=== PATIENT | female | born 1975 | race Caucasian/White ===

== ENCOUNTER 2018-01-13 01:10 | Emergency (ER) | payer OTHER ==
[2018-01-13] MEDS ORDERED: 0.9 % SODIUM CHLORIDE 500 ML IV ONE ×2 (01:20→01:58)
[2018-01-13] MEDS ORDERED: ONDANSETRON HCL/PF 4 MG/ 2ML VIAL IVP ONE (01:20)
--- NOTE | 2018-01-13 01:51 | ED Physician Documentation ---
General Adult - HISTORIAN Historian: patient - HPI Stated Complaint: heavy period, cramping Chief Complaint: General Adult Onset: hours Timing: still present Severity: moderate Further Comments: yes (Pt is a 42 yo female with c/o heavy menses and abd pain/ cramping this evening. Pt says that she was at work and filled 2 tampons in the space of 20 minutes and saw several clots.) - ROS CONST: other (malaise) EYES/ENT: none CVS/RESP: none GI/: other (heavy menses) MS/SKIN/LYMPH: none - PAST HX Past History: other (MS, Fibromyalgia, RA, OA, PTSD, ADHD, Endometriosis, Falopian Tube adhesions, Uterine infection, Costochondritis, Miscarriage x 5, Live births x 5.) Allergies/Adverse Reactions: Allergies Allergy/AdvReac Type Severity Reaction Status Date / Time cephalexin monohydrate Allergy Verified 01/13/18 01:16 [From Keflex] ciprofloxacin [From Cipro] Allergy Verified 01/13/18 01:16 ciprofloxacin HCl Allergy Verified 01/13/18 01:16 [From Cipro] levofloxacin Allergy Verified 01/13/18 01:16 sulfamethoxazole Allergy Verified 01/13/18 01:16 [From Bactrim] trimethoprim [From Bactrim] Allergy Verified 01/13/18 01:16 Home Medications: Ambulatory Orders Medication Instructions Recorded Dextroamphetamine/Amphetamine 15 mg PO DAILY 10/18/15 [Adderall 15 mg Tablet] - SOCIAL HX Smoking History: non-smoker - FAMILY HX Family History: No - VITAL SIGNS Vital Signs: Vital Signs Temp Pulse Resp BP Pulse Ox 98.2 F 96 H 16 113/71 99 01/13/18 01:12 01/13/18 01:12 01/13/18 01:12 01/13/18 01:12 01/13/18 01:12 - REVIEWED ASSESSMENTS Nursing Assessment Reviewed: Yes Vitals Reviewed: Yes Progress - Progress Progress: NS 1 L IVF Zofran 4 mg IV Toradol 30 mg IV improved ED Results Lab/Radiology - Orders Orders: ED Orders Category Date Time Status Place IV Lock 1T Care 01/13/18 01:20 Active CBC/PLATELET/DIFF Routine Lab 01/13/18 Ordered CMP Routine Lab 01/13/18 Ordered PT-INR Routine Lab 01/13/18 Ordered SERUM HCG Stat Lab 01/13/18 Ordered 0.9 % Sodium Chloride [Normal Saline] 500 ml Med 01/13/18 01:20 Active IV NOW Ondansetron HCl/Pf [Zofran 4 mg/2 ml] Med 01/13/18 01:20 Discontinued 4 mg IVP NOW ONE General Adult Physical Exam - PHYSICAL EXAM GENERAL APPEARANCE: moderate distress EENT: pharynx normal, other (poor dentition) NECK: normal inspection, supple RESPIRATORY: no resp distress, chest non-tender, breath sounds normal CVS: reg rate & rhythm, heart sounds normal ABDOMEN: soft, normal bowel sounds, tenderness (moderate diffuse tenderness), other (vag exam: small amount of blood, small clot seen; no unusual bleeding seen) BACK: normal inspection, no CVA tenderness SKIN: warm/dry, normal color EXTREMITIES: non-tender, normal range of motion, no evidence of injury, no edema NEURO: oriented X3, motor nml, sensation nml Discharge Clincal Impression: Menses painful Referrals: Primary Doctor,No [Primary Care Provider] - Condition: Good Disposition: 01 HOME, SELF-CARE Decision to Admit: NO Decision Time: 03:01
[2018-01-13 02:07] LABS: BASOPHILS % 0.9 (0.0-1.5); EOSINOPHILS % 2.8 % (0.0-6.8); MEAN CORPUSCULAR HEMOGLOBIN 28.8 pg (28.0-34.0); MEAN CORPUSCULAR VOLUME 91.1 fl (80.0-100.0); MONOCYTES % 4.4 % (0.0-11.0); NEUTROPHILS # 4.8 # k/uL (1.4-7.7)
[2018-01-13 02:18] LABS: eGFR (African) > 60; eGFR (Non-African) > 60
[2018-01-13] MEDS ORDERED: KETOROLAC TROMETHAMINE 30 MG/1ML VIAL IVP ONE (02:20)
[2018-01-13 03:09] LABS: APPEARANCE,URINE CLEAR (CLEAR); COLOR,URINE YELLOW (YELLOW); OCCULT BLOOD,URINE 2+ (NEGATIVE); PH URINE 5.5 (5.0 - 8.0); UROBILINOGEN URINE 0.2 Eu (0.2-1.0)
[2018-01-13 03:17] VITALS: BP 102/59
== END 2018-01-13 03:10 | disposition home or self-care (01) ==
LOC: ED 01:10
DX: N94.6 Dysmenorrhea, unspecified (principal)
CPT/HCPCS: 80053; 81002; 84703; 85025; 85610; J1885; J2405; J7060; 96365; 96366; 96375; 99283; S1016

== ENCOUNTER 2018-04-01 00:25 | Emergency (ER) | payer OTHER ==
--- NOTE | 2018-04-01 00:30 | ED Physician Documentation ---
General Adult - HISTORIAN Historian: patient - HPI Stated Complaint: lower abdominal pain Chief Complaint: Abdominal Pain Onset: hours (1) Timing: still present Severity: moderate Further Comments: yes (She states two weeks ago she was in the ER for "low iron and a ruptured ovarian cyst" they wanted to admit her for the iron issue per her report but she did not feel she needed to be admitted. She states she has endometrosis. 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 She states that she then after work tonight went to use the restroom and she had severe pain on right lower abdomen. She states this almost made her "pass out" and she had "terrible pain with urination" . She denies a fever. She states that at this time she did have blood in her urine. She is not sexually active. No low back pain She did not take any meds for the pain) Last known Well Code/Unknown Code: Unknown - ROS CONST: denies: fever, recent illness EYES/ENT: denies: sore throat CVS/RESP: denies: shortness of breath GI/: abdominal pain, problems urinating. denies: vomiting, nausea, diarrhea MS/SKIN/LYMPH: denies: rash NEURO/PSYCH: denies: headache - PAST HX Past History: other (endometrosis, ovarian cyst, low iron ) Surgeries/Procedures: other (T&A ) Immunizations: UTD Allergies/Adverse Reactions: Allergies Allergy/AdvReac Type Severity Reaction Status Date / Time cephalexin monohydrate Allergy Verified 04/01/18 01:03 [From Keflex] ciprofloxacin [From Cipro] Allergy Verified 04/01/18 01:03 ciprofloxacin HCl Allergy Verified 04/01/18 01:03 [From Cipro] levofloxacin Allergy Verified 04/01/18 01:03 sulfamethoxazole Allergy Verified 04/01/18 01:03 [From Bactrim] trimethoprim [From Bactrim] Allergy Verified 04/01/18 01:03 Home Medications: Ambulatory Orders Medication Instructions Recorded Dexmethylphenidate HCl 20 mg PO DAILY 04/01/18 [Dexmethylphenidate HCl ER] - SOCIAL HX Smoking History: cigarettes Alcohol Use: none Drug Use: none - FAMILY HX Family History: No - VITAL SIGNS Vital Signs: Vital Signs Temp Pulse Resp BP Pulse Ox 102/59 01/13/18 03:10 - REVIEWED ASSESSMENTS Nursing Assessment Reviewed: Yes Vitals Reviewed: Yes Progress - Progress Progress: 0141: results discussed. She is agreeable to following up with her dr mid to end of the week for follow up UA and labs DG General Adult Physical Exam - PHYSICAL EXAM GENERAL APPEARANCE: no distress EENT: eye inspection normal NECK: normal inspection RESPIRATORY: no resp distress, chest non-tender, breath sounds normal CVS: reg rate & rhythm, heart sounds normal, equal pulses, no murmur ABDOMEN: soft, normal bowel sounds, no distension, tenderness. No: McBurney's point tenderne, rebound, guarding BACK: normal inspection SKIN: warm/dry, normal color EXTREMITIES: non-tender, normal range of motion, no evidence of injury, no edema NEURO: oriented X3, CN's nml as tested, motor nml, sensation nml, mood/affect nml Discharge Clincal Impression: Urinary tract infection Qualifiers: Urinary tract infection type: site unspecified Hematuria presence: with hematuria Qualified Code(s): N39.0 - Urinary tract infection, site not specified Referrals: Primary Doctor,No [Primary Care Provider] - 2 Days Additional Instructions: 1. Macrobid 100 mg take 1 by mouth BID x 10 days 2. Pyridum 100 mg TID x 3 days 3. Increase fluids 4. Tylenol or ibuprofen as needed for pain 5. Follow up with PCP in 2-4 days 6. Return to ER for increased symptoms Condition: Stable Disposition: 01 HOME, SELF-CARE Decision to Admit: NO Date of Decison to Admit: 04/01/18 Decision Time: 01:41
[2018-04-01] MEDS: 0.9 % SODIUM CHLORIDE 1,000 ML IV ONE (01:15)
[2018-04-01] MEDS: KETOROLAC TROMETHAMINE 30 MG/1ML VIAL IVP ONE (01:15)
[2018-04-01 01:21] LABS: BASOPHILS % 0.3 (0.0-1.5); EOSINOPHILS % 0.7 % (0.0-6.8); MEAN CORPUSCULAR HEMOGLOBIN 27.8 pg (28.0-34.0); MEAN CORPUSCULAR VOLUME 89.8 fl (80.0-100.0); MONOCYTES % 3.4 % (0.0-11.0); NEUTROPHILS # 11.6 # k/uL (1.4-7.7)
[2018-04-01] MEDS: NITROFURANTOIN 100 MG CAPSULE PO ONE (01:21)
[2018-04-01] MEDS: PHENAZOPYRIDINE HCL 200 MG TABLET PO ONE (01:22)
[2018-04-01 01:36] LABS: eGFR (African) > 60; eGFR (Non-African) > 60
[2018-04-01 02:41] VITALS: BP 97/70
== END 2018-04-01 02:23 | disposition home or self-care (01) ==
LOC: ED 00:25
DX: N39.0 Urinary tract infection, site not specified (principal)
CPT/HCPCS: 80053; 85025; 87086; 87186; J1885; J7030; 96365; 96375; 99283; S1016

== ENCOUNTER 2018-04-29 19:51 | Emergency (ER) | payer SELFPAY ==
--- NOTE | 2018-04-29 20:24 | ED Physician Documentation ---
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 Has pain left glut and tailbone. Walked into ER. No treatment attempted. No other associated signs. Occurred about 174. Where: work - ROS CONST: no problems - PAST HX Past History: other (MS, fibromyalgia) Allergies/Adverse Reactions: Allergies Allergy/AdvReac Type Severity Reaction Status Date / Time cephalexin monohydrate Allergy Verified 04/29/18 21:10 [From Keflex] ciprofloxacin [From Cipro] Allergy Verified 04/29/18 21:10 ciprofloxacin HCl Allergy Verified 04/29/18 21:10 [From Cipro] levofloxacin Allergy Verified 04/29/18 21:10 sulfamethoxazole Allergy Verified 04/29/18 21:10 [From Bactrim] trimethoprim [From Bactrim] Allergy Verified 04/29/18 21:10 Home Medications: Ambulatory Orders Medication Instructions Recorded Dexmethylphenidate HCl 20 mg PO DAILY 04/01/18 [Dexmethylphenidate HCl ER] - SOCIAL HX Smoking History: non-smoker - FAMILY HX Family History: no significant history - VITAL SIGNS Vital Signs: Vital Signs Temp Pulse Resp BP Pulse Ox 97/70 04/01/18 02:39 - REVIEWED ASSESSMENTS Nursing Assessment Reviewed: Yes Vitals Reviewed: Yes Progress - Progress Progress: Patient Study Name: ANIVAL MYERS Date: Apr 29, 2018 8:51:30 PM CDT Modality Type: DX Gender: F Description: SPINE : 75 Institution: [facility] Physician: HUMBERTO GREENE - ER 3 views of the lumbar spine Clinical history: FALL, LOWER BACK PAIN Findings: Examination lumbar spine AP, lateral and lateral coned down views demonstrates the vertebrae to be anatomically aligned. Pedicles are intact and the paravertebral soft tissues are within normal limits. No evident fracture. Impression: 1. Negative study. Electronically signed on Apr 29, 2018 9:18:24 PM CDT by: José Sim Patient Study Name: ANIVAL MYERS Date: Apr 29, 2018 8:45:55 PM CDT Modality Type: DX Gender: F Description: SPINE : 75 Institution: [facility] Physician: HUMBERTO GREENE - 3 views of the sacrum and coccyx Clinical history: FALL, LOWER BACK PAIN Findings: Examination sacrum and coccyx in AP, angled and lateral views fails to demonstrate evidence of fracture. Sacroiliac joints are symmetric. Sacral foramina are preserved. Impression: 1. Negative study. Electronically signed on Apr 29, 2018 9:17:29 PM CDT by: José Sim Patient Study Name: ANIVAL MYERS Date: Apr 29, 2018 8:36:34 PM CDT Modality Type: DX Gender: F Description: PELVIS : 75 Institution: [facility] Physician: HUMBERTO GREENE [facility] Pelvis and bilateral hips Clinical history: BILAT HIP/W PELVIS, BILAT HIP PAIN, MORE PAIN IN LEFT HIP Findings: Examination of the pelvis in AP and both hips in AP and frog leg lateral views fails to demonstrate evidence of fracture. Sacroiliac joints are symmetric. Femoral heads are normally seated in the acetabula. There is no evident fracture and no lytic or blastic lesion. Impression: 1. No fracture. Electronically signed on Apr 29, 2018 9:16:34 PM CDT by: José Sim ED Results Lab/Radiology - Orders Orders: ED Orders Category Date Time Status BILAT HIPS 2V (W/PEL IF DONE) [RAD] Stat Exams 04/29/18 Ordered L SPINE 2 OR 3 VIEWS [RAD] Stat Exams 04/29/18 Ordered SACRUM & COCCYX 2 VIEW+ [RAD] Stat Exams 04/29/18 Ordered URINE HCG [URINE HCG] Stat Lab 04/29/18 Uncollected Fall Physical Exam - Physical Exam General Appearance: alert, mild distress Head: no obvious injury Neck: painless ROM Eye: lids & conjunct. nml ENT: nml external inspection Resp/CVS: chest non-tender, breath sounds nml, heart sounds nml Abdomen: soft, normal bowel sounds Neuro: CN's nml as tested, sensation nml, motor nml Skin: color nml, warm Back: normal inspection, no CVA tenderness, no vertebral tenderness Extremities: atraumatic, pelvis stable (tender to palpation left iliac crest area), no pedal edema, other (gait is antalgic) Joint: joints nml, nml ROM Discharge Clincal Impression: Fall Qualifiers: Encounter type: initial encounter Qualified Code(s): W19.XXXA - Unspecified fall, initial encounter Contusion Qualifiers: Encounter type: initial encounter Contusion area: lower back Qualified Code(s) : S30.0XXA - Contusion of lower back and pelvis, initial encounter Referrals: Bethel Kasper [Primary Care Provider] - 2 Days Condition: Good Disposition: 01 HOME, SELF-CARE Decision to Admit: NO Decision Time: 21:23
[2018-04-29] MEDS ORDERED: KETOROLAC TROMETHAMINE 60 MG/2 ML VIAL IM ONE (21:12)
[2018-04-29] MEDS ORDERED: ORPHENADRINE CITRATE 60 MG/2ML IM ONE (21:12)
[2018-04-29] MEDS ORDERED: CYCLOBENZAPRINE HCL 5 MG TABLET PO ONE (21:31)
[2018-04-29] MEDS ORDERED: ACETAMINOPHEN WITH CODEINE 300MG/30MG TABLET PO ONE (21:31)
[2018-04-29 21:51] VITALS: BP 109/45
--- NOTE | 2018-04-30 06:25 | Diagnostic Imaging Report ---
HUMBERTO GREENE [facility] [address] [facility] [address] [address] Report Submission Date: Apr 29, 2018 9:17:29 PM CDT Patient Study Name: ANIVAL MYERS Date: Apr 29, 2018 8:45:55 PM CDT Modality Type: DX Gender: F Description: SPINE : 75 Institution: [facility] Physician: HUMBERTO GREENE 3 views of the sacrum and coccyx Clinical history: FALL, LOWER BACK PAIN Findings: Examination sacrum and coccyx in AP, angled and lateral views fails to demonstrate evidence of fracture. Sacroiliac joints are symmetric. Sacral foramina are preserved. Impression: 1. Negative study. Electronically signed on Apr 29, 2018 9:17:29 PM CDT by: José CULP
--- NOTE | 2018-04-30 06:25 | Diagnostic Imaging Report ---
HUMBERTO GREENE [facility] [id number] [facility] [address] [address] Report Submission Date: Apr 29, 2018 9:18:24 PM CDT Patient Study Name: ANIVAL MYERS Date: Apr 29, 2018 8:51:30 PM CDT Modality Type: DX Gender: F Description: SPINE : 75 Institution: [facility] Physician: HUMBERTO GREENE 3 views of the lumbar spine Clinical history: FALL, LOWER BACK PAIN Findings: Examination lumbar spine AP, lateral and lateral coned down views demonstrates the vertebrae to be anatomically aligned. Pedicles are intact and the paravertebral soft tissues are within normal limits. No evident fracture. Impression: 1. Negative study. Electronically signed on Apr 29, 2018 9:18:24 PM CDT by: José CULP
--- NOTE | 2018-04-30 06:25 | Diagnostic Imaging Report ---
HUMBERTO GREENE [facility] [address] [facility] [address] [place] [address]. [id number] Report Submission Date: Apr 29, 2018 9:16:34 PM CDT Patient Study Name: ANIVAL MYERS Date: Apr 29, 2018 8:36:34 PM CDT Modality Type: DX Gender: F Description: PELVIS : 75 Institution: [facility] Physician: HUMBERTO GREENE Pelvis and bilateral hips Clinical history: BILAT HIP/W PELVIS, BILAT HIP PAIN, MORE PAIN IN LEFT HIP Findings: Examination of the pelvis in AP and both hips in AP and frog leg lateral views fails to demonstrate evidence of fracture. Sacroiliac joints are symmetric. Femoral heads are normally seated in the acetabula. There is no evident fracture and no lytic or blastic lesion. Impression: 1. No fracture. Electronically signed on Apr 29, 2018 9:16:34 PM CDT by: José CULP
== END 2018-04-29 21:39 | disposition home or self-care (01) ==
LOC: ED 19:51
DX: S30.0XXA Contusion of lower back and pelvis, initial encounter (principal); W19.XXXA Unspecified fall, initial encounter; Y92.149 Unspecified place in prison as the place of occurrence of the external cause; Y93.9 Activity, unspecified; Y99.9 Unspecified external cause status
CPT/HCPCS: 72100; 72220; 73521; 99284

== ENCOUNTER 2018-05-01 01:39 | Emergency (ER) | payer OTHER ==
--- NOTE | 2018-05-01 02:16 | ED Physician Documentation ---
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 no central spinous tenderness Onset: yesterday Duration: continues in ED (did not get her rx filled-slept all day-called [facility] for work excuse-they req she come here) Context: near-fall Where: work Other Injuries: neck Severity: mild, moderate Quality: burning, other (lt lat muscle pain none w central palpatioon) Exacerbated By: movement of neck (adnd lt muscle palpation) - ROS NEURO/PSYCH: denies: difficulty with speech, anxiety, depression EYES/ENT: none, problems with vision CVS/RESP: none, chest pain, shortness of breath CONST: no problems, recent illness GI/: denies: nausea, vomiting, problems urinating MS/SKIN/LYMPH: none - PAST HX Past History: other (fibromyalgia ms) Allergies/Adverse Reactions: Allergies Allergy/AdvReac Type Severity Reaction Status Date / Time cephalexin monohydrate Allergy Verified 05/01/18 02:06 [From Keflex] ciprofloxacin [From Cipro] Allergy Verified 05/01/18 02:06 ciprofloxacin HCl Allergy Verified 05/01/18 02:06 [From Cipro] levofloxacin Allergy Verified 05/01/18 02:06 sulfamethoxazole Allergy Verified 05/01/18 02:06 [From Bactrim] trimethoprim [From Bactrim] Allergy Verified 05/01/18 02:06 Home Medications: Ambulatory Orders Medication Instructions Recorded Dexmethylphenidate HCl 20 mg PO DAILY 04/01/18 [Dexmethylphenidate HCl ER] Acetaminophen with Codeine 1 each PO Q4H PRN #15 tablet 04/29/18 [Tylenol with Codeine #3 Tablet] - SOCIAL HX Smoking History: non-smoker Alcohol Use: none Drug Use: none - FAMILY HX Family History: no significant history - VITAL SIGNS Vital Signs: Vital Signs Temp Pulse Resp BP Pulse Ox 98.4 F 77 16 101/76 99 05/01/18 01:50 05/01/18 01:50 05/01/18 01:50 05/01/18 01:50 05/01/18 01:50 - REVIEWED ASSESSMENT Nursing Assessment Reviewed: Yes Vitals Reviewed: Yes ED Results Lab/Radiology - Orders Orders: ED Orders Category Date Time Status Acetaminophen with Codeine [Tylenol #3] Med 05/01/18 02:12 Once 1 each PO NOW ONE Cyclobenzaprine HCl [Flexeril] Med 05/01/18 02:12 Once 10 mg PO NOW ONE Neck Injury/Pain - Physical Exam General Appearance: mild distress EENT: nml ENT inspection Neck: muscle spasm (lt) Nexus Criteria: Nexus criteria neg Respiratory: chest non-tender, breath sounds nml CVS: heart sounds nml, bilateral pulses nml Abdomen: non-tender Skin: warm/dry, normal color. No: cyanosis, diaphoresis, jaundice, mottled Extremities: non-tender, normal range of motion, no evidence of injury Neuro/Psych: oriented x3, CN's nml as tested Discharge Clincal Impression: work trauma meds non compliance, hx ms and fibromalgia Referrals: Bethel Kasper [Primary Care Provider] - 2 Days Condition: Good Disposition: 01 HOME, SELF-CARE Decision to Admit: NO Decision Time: 02:21
[2018-05-01] MEDS: ACETAMINOPHEN WITH CODEINE 300MG/30MG TABLET PO ONE (02:19)
[2018-05-01] MEDS: CYCLOBENZAPRINE HCL 5 MG TABLET PO ONE (02:19)
[2018-05-01 02:32] VITALS: BP 98/72
== END 2018-05-01 02:30 | disposition home or self-care (01) ==
LOC: ED 01:39
DX: M54.2 Cervicalgia (principal); Z91.14 Patient's other noncompliance with medication regimen; Z87.39 Personal history of other diseases of the musculoskeletal system and connective tissue
CPT/HCPCS: 99283

== ENCOUNTER 2018-05-10 20:01 | Emergency (ER) | payer OTHER ==
--- NOTE | 2018-05-10 21:26 | ED Physician Documentation ---
General Adult - HISTORIAN Historian: patient - HPI Stated Complaint: chest pain Chief Complaint: General Adult Additional Information: Walking in [place] [place] when she had a sharp pain just distal to mid left clavicle, then had electric sensations down left arm. Says she became quite anxious. Checked by nurse at work and her vital signs were fine. Came to ER. No treatment attempted. Says she has been told she has angina but its not a concern. Long HX anxiety. At time of exam,symptoms have resolved except occasional electric shock in left arm. 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 - ROS CONST: no problems - PAST HX Past History: other (psych issues, fibromyalgia) Allergies/Adverse Reactions: Allergies Allergy/AdvReac Type Severity Reaction Status Date / Time cephalexin monohydrate Allergy Verified 05/10/18 20:51 [From Keflex] ciprofloxacin [From Cipro] Allergy Verified 05/10/18 20:51 ciprofloxacin HCl Allergy Verified 05/10/18 20:51 [From Cipro] levofloxacin Allergy Verified 05/10/18 20:51 sulfamethoxazole Allergy Verified 05/10/18 20:51 [From Bactrim] trimethoprim [From Bactrim] Allergy Verified 05/10/18 20:51 - SOCIAL HX Smoking History: non-smoker - FAMILY HX Family History: No - VITAL SIGNS Vital Signs: Vital Signs Temp Pulse Resp BP Pulse Ox 98/72 05/01/18 02:30 - REVIEWED ASSESSMENTS Nursing Assessment Reviewed: Yes Vitals Reviewed: Yes Progress - Progress Progress: EKG unremarkable. Serial Trop I's negative. Cardiology not involved. ED Results Lab/Radiology - Orders Orders: ED Orders Category Date Time Status CBC/PLATELET/DIFF Routine Lab 05/10/18 Ordered CMP Routine Lab 05/10/18 Ordered DRUG SCREEN URINE MEDICAL ONLY Routine Lab 05/10/18 Ordered TROPONIN I (cTnI) Stat Lab 05/10/18 21:16 Received URINALYSIS Routine Lab 05/10/18 Ordered LORazepam [Ativan] Med 05/10/18 20:58 Discontinued 1 mg PO NOW ONE General Adult Physical Exam - PHYSICAL EXAM GENERAL APPEARANCE: no distress (at time of exam) EENT: eye inspection normal, ENT inspection normal NECK: normal inspection, supple RESPIRATORY: no resp distress, chest non-tender, breath sounds normal, other ( palpation of left trap muscle spasm reproduces her pain and electric shock sensations) CVS: reg rate & rhythm, heart sounds normal, no murmur ABDOMEN: soft, normal bowel sounds BACK: normal inspection SKIN: warm/dry, normal color EXTREMITIES: no evidence of injury NEURO: CN's nml as tested, motor nml, sensation nml, cognition normal Discharge Clincal Impression: Trapezius muscle spasm, Anxiety Referrals: Bethel Kasper [Primary Care Provider] - 2 Days Additional Instructions: Your EKG and laboratory results were reassuring. Apply ice or heat to the sore muscles in your neck and shoulde several times a day followed by movement and gentle stretching. Condition: Good Disposition: 01 HOME, SELF-CARE Decision to Admit: NO Decision Time: 23:15
[2018-05-10 21:27] LABS: BASOPHILS % 0.7 (0.0-1.5); EOSINOPHILS % 2.5 % (0.0-6.8); MEAN CORPUSCULAR HEMOGLOBIN 27.1 pg (28.0-34.0); MEAN CORPUSCULAR VOLUME 87.9 fl (80.0-100.0); MONOCYTES % 3.4 % (0.0-11.0); NEUTROPHILS # 4.6 # k/uL (1.4-7.7)
[2018-05-10] MEDS: LORazepam 1 MG TABLET PO ONE (21:30)
[2018-05-10 21:38] LABS: eGFR (Non-African) 38
[2018-05-10] MEDS: CYCLOBENZAPRINE HCL 5 MG TABLET PO ONE (23:20)
[2018-05-11 01:27] VITALS: BP 102/53
[2018-05-11 07:20] LABS: APPEARANCE,URINE CLEAR (CLEAR); COLOR,URINE YELLOW (YELLOW); OCCULT BLOOD,URINE NEGATIVE (NEGATIVE); PH URINE 7.5 (5.0 - 8.0); UROBILINOGEN URINE 0.2 Eu (0.2-1.0)
[2018-05-11 07:20] LABS: CANNABINOIDS NEGATIVE ng/mL (< 50); METHYLENEDIOXYMETHAMPHETAMINE NEGATIVE ng/mL (<500)
== END 2018-05-10 23:25 | disposition home or self-care (01) ==
LOC: ED 20:01
DX: M62.838 Other muscle spasm (principal); F41.9 Anxiety disorder, unspecified
CPT/HCPCS: 80053; 80320; 80377; 81002; 84484; 85025; 99284; G0480; G0481; S1016

== ENCOUNTER 2018-08-08 20:20 | Emergency (ER) | payer OTHER ==
[2018-08-08] MEDS ORDERED: MUPIROCIN 2% OINT 22GM TUBE TP ONE (20:57)
[2018-08-08] MEDS ORDERED: TRIAMCINOLONE ACETONIDE 0.1% TP ONE (20:59)
[2018-08-08] MEDS ORDERED: DOXYCYCLINE MONOHYDRATE 100 MG CAPSULE PO ONE (21:02)
[2018-08-08] MEDS ORDERED: TRIAMCINOLONE CREAM 0.1% 15GM TUBE TP ONE (21:07)
--- NOTE | 2018-08-08 21:13 | ED Physician Documentation ---
General Adult - HISTORIAN Historian: patient - HPI Stated Complaint: Right nipple pain with skin tag Chief Complaint: General Adult Additional Information: 2 day history of irritation to a skin tag on right nipple she has had for over 1 year Onset: days ago (2) Timing: still present Severity: moderate Modifying Factors: hurts to touch Context: became irritated, has been oozing serosanguinous materila all day today Quality: moderate Location: 10:00 position of right nipple Further Comments: no Last known Well Date: 08/06/18 Last Known Well Time: 07:00 Last known Well Code/Unknown Code: Unknown - ROS CONST: no problems EYES/ENT: none CVS/RESP: none GI/: none MS/SKIN/LYMPH: other (painful, irritated skin tag right nipple) NEURO/PSYCH: denies: headache, fainting, dizziness, tingling, numbness, difficulty walking, difficulty with speech, anxiety, depression - PAST HX Past History: other (anxiety, fibromyalgia, oa, coholecystitis) Surgeries/Procedures: other (cholecystectomy) Allergies/Adverse Reactions: Allergies Allergy/AdvReac Type Severity Reaction Status Date / Time cephalexin monohydrate Allergy Verified 08/08/18 20:44 [From Keflex] ciprofloxacin [From Cipro] Allergy Verified 08/08/18 20:44 ciprofloxacin HCl Allergy Verified 08/08/18 20:44 [From Cipro] levofloxacin Allergy Verified 08/08/18 20:44 sulfamethoxazole Allergy Verified 08/08/18 20:44 [From Bactrim] trimethoprim [From Bactrim] Allergy Verified 08/08/18 20:44 Home Medications: Ambulatory Orders Medication Instructions Recorded Aspirin/Acetaminophen/Caffeine 1 each PO DAILY 08/08/18 [Headache Relief Tablet] Dextroamphetamine/Amphetamine 20 mg PO DAILY 08/08/18 [Adderall Xr 20 mg Capsule] - SOCIAL HX Smoking History: non-smoker Alcohol Use: occasionally Drug Use: none - FAMILY HX Family History: No - VITAL SIGNS Vital Signs: Vital Signs Temp Pulse Resp BP Pulse Ox 97.8 F 92 H 18 100/58 98 08/08/18 20:20 08/08/18 20:20 08/08/18 20:20 08/08/18 20:20 08/08/18 20:20 - REVIEWED ASSESSMENTS Nursing Assessment Reviewed: Yes Vitals Reviewed: Yes Progress - Results/Orders Results/Orders: no testing ordered - Progress Progress: Dressed with Bactroban ointment, Triamcinolone cream and a 2 x 2 bandage. Doxycycine 100 mg p.o. given. Critical Care Note - Critical Care Note Total Time (mins): 0 ED Results Lab/Radiology - Lab Results Lab Results: none ordered - Radiology Radiology Impressions: none ordered - Orders Orders: ED Orders Category Date Time Status Further Nursing Orders 1T Care 08/08/18 20:55 Active Mupirocin [Bactroban] Med 08/08/18 20:57 Discontinued 1 appl TP NOW ONE Triamcinolone Acetonide 0.1% [Kenalog] Med 08/08/18 20:59 Once 1 gm TP 1T ONE General Adult Physical Exam - PHYSICAL EXAM GENERAL APPEARANCE: mild distress EENT: eye inspection normal, ENT inspection normal, pharynx normal, no signs of dehydration, CHILO, no nystagmus, TM's nml NECK: normal inspection, thyroid normal, supple RESPIRATORY: no resp distress, chest non-tender, breath sounds normal CVS: reg rate & rhythm, heart sounds normal, equal pulses, no murmur, no gallop, PMI nml, no JVD, no friction rub ABDOMEN: soft, no organomegaly, normal bowel sounds, no abdominal bruit, no distension, non-tender BACK: normal inspection, no CVA tenderness SKIN: other (4 mm skin tag 10:00 position right nipple, irritated, but not actively draining or bleeding. No evidence of cellulitis or abscess.) EXTREMITIES: non-tender, normal range of motion, no evidence of injury, no edema NEURO: oriented X3, CN's nml as tested, motor nml, sensation nml, mood/affect nml, cognition normal Discharge Clincal Impression: Skin tag Referrals: Bethel Kasper [Primary Care Provider] - 2 Days Comments: Discharged in stable condition with prescription for Bactroban ointment #30g apply bid to affected area, 0.1% Triamcinolone ointment #30 g apply bid to affected area and Doxycycline 100 mg #14 1 p.o. bid. Condition: Stable Disposition: 01 HOME, SELF-CARE Decision to Admit: NO Decision Time: 21:17
[2018-08-08 21:51] VITALS: BP 110/72
== END 2018-08-08 21:35 | disposition home or self-care (01) ==
LOC: ED 20:20
DX: L91.8 Other hypertrophic disorders of the skin (principal)
CPT/HCPCS: 99283

== ENCOUNTER 2018-09-13 16:29 | Emergency (ER) | payer OTHER ==
--- NOTE | 2018-09-13 16:33 | ED Physician Documentation ---
General Adult - HISTORIAN Historian: patient - HPI Stated Complaint: skin tag on right breast x 1 year Chief Complaint: Skin Rash Onset: other (1 year ) Timing: still present Severity: mild Further Comments: yes (She has had the skin tag on her right breast x 1 year. She is worried when she has to do tacticle at work next week it will get infected. She has some mild pain in the breast. She has not seen her PCP for the area due to a ride conflict. No nipple discharge. no lumps) Last known Well Code/Unknown Code: Unknown - ROS CONST: no problems - PAST HX Past History: none Immunizations: UTD Allergies/Adverse Reactions: Allergies Allergy/AdvReac Type Severity Reaction Status Date / Time cephalexin monohydrate Allergy Verified 09/13/18 16:41 [From Keflex] ciprofloxacin [From Cipro] Allergy Verified 09/13/18 16:41 ciprofloxacin HCl Allergy Verified 09/13/18 16:41 [From Cipro] levofloxacin Allergy Verified 09/13/18 16:41 sulfamethoxazole Allergy Verified 09/13/18 16:41 [From Bactrim] trimethoprim [From Bactrim] Allergy Verified 09/13/18 16:41 Home Medications: Ambulatory Orders Medication Instructions Recorded Dextroamphetamine/Amphetamine 20 mg PO DAILY 08/08/18 [Adderall Xr 20 mg Capsule] - SOCIAL HX Smoking History: cigarettes Alcohol Use: none Drug Use: none - FAMILY HX Family History: No - VITAL SIGNS Vital Signs: Vital Signs Temp Pulse Resp BP Pulse Ox 110/72 08/08/18 21:35 - REVIEWED ASSESSMENTS Nursing Assessment Reviewed: Yes Vitals Reviewed: Yes General Adult Physical Exam - PHYSICAL EXAM GENERAL APPEARANCE: no distress EENT: eye inspection normal NECK: normal inspection RESPIRATORY: no resp distress, chest non-tender, breath sounds normal CVS: reg rate & rhythm, heart sounds normal ABDOMEN: soft BACK: normal inspection SKIN: warm/dry, other (small pin point size skin tag on lateral side of right nipple. No redness no drainge. no pain with palpation of breast ) EXTREMITIES: non-tender NEURO: oriented X3, CN's nml as tested, motor nml Discharge Clincal Impression: Skin tag Referrals: Bethel Kasper [Primary Care Provider] - 2 Days Comments: 1. See your PCP for skin tag 2. return for any concerns Condition: Stable Disposition: 01 HOME, SELF-CARE Decision to Admit: NO Date of Decison to Admit: 09/13/18 Decision Time: 16:52
[2018-09-13 16:46] VITALS: BP 98/77
== END 2018-09-13 16:54 | disposition home or self-care (01) ==
LOC: ED 16:29
DX: L91.8 Other hypertrophic disorders of the skin (principal); F17.210 Nicotine dependence, cigarettes, uncomplicated
CPT/HCPCS: 99282

== ENCOUNTER 2018-10-27 19:18 | Emergency (ER) | payer OTHER ==
--- NOTE | 2018-10-27 19:36 | ED Physician Documentation ---
General Adult - HISTORIAN Historian: patient - HPI Stated Complaint: near syncope Chief Complaint: General Adult Onset: hours Timing: still present Severity: moderate Further Comments: yes (Pt is a 42 yo female with c/o migraine headache. Pt has hx migraines and has recently been rx'd sumitriptan. Pt took 1/2 dose of sumitraiptan tonight but "it made her feel weird." Pt has had headache for 6 days. Some nausea. Pt also has hx MS.) - ROS CONST: no problems EYES/ENT: none CVS/RESP: none GI/: nausea MS/SKIN/LYMPH: none NEURO/PSYCH: headache - PAST HX Past History: other (migraine, MS, anxiety) Allergies/Adverse Reactions: Allergies Allergy/AdvReac Type Severity Reaction Status Date / Time cephalexin monohydrate Allergy Verified 10/27/18 19:54 [From Keflex] ciprofloxacin [From Cipro] Allergy Verified 10/27/18 19:54 ciprofloxacin HCl Allergy Verified 10/27/18 19:54 [From Cipro] levofloxacin Allergy Verified 10/27/18 19:54 sulfamethoxazole Allergy Verified 10/27/18 19:54 [From Bactrim] trimethoprim [From Bactrim] Allergy Verified 10/27/18 19:54 Home Medications: Ambulatory Orders Medication Instructions Recorded Dextroamphetamine/Amphetamine 20 mg PO DAILY 08/08/18 [Adderall Xr 20 mg Capsule] Sumatriptan Succinate [Imitrex] 25 mg PO PRN 10/27/18 - SOCIAL HX Smoking History: non-smoker - FAMILY HX Family History: No - VITAL SIGNS Vital Signs: Vital Signs Temp Pulse Resp BP Pulse Ox 98/77 09/13/18 16:54 - REVIEWED ASSESSMENTS Nursing Assessment Reviewed: Yes Vitals Reviewed: Yes Progress - Progress Progress: NS 1 L IVF Toradol 30 mg IV much improved General Adult Physical Exam - PHYSICAL EXAM GENERAL APPEARANCE: moderate distress EENT: eye inspection normal, pharynx normal NECK: normal inspection, supple RESPIRATORY: no resp distress, chest non-tender, breath sounds normal CVS: reg rate & rhythm, heart sounds normal ABDOMEN: soft, no organomegaly, normal bowel sounds BACK: normal inspection, no CVA tenderness SKIN: warm/dry, normal color EXTREMITIES: non-tender, normal range of motion, no evidence of injury, no edema NEURO: oriented X3, CN's nml as tested, motor nml, sensation nml Discharge Clincal Impression: Migraine Qualifiers: Migraine type: with aura Status migrainosus presence: without status migrainosus Intractability: not intractable Qualified Code(s): G43.109 - Migraine with aura, not intractable, without status migrainosus Referrals: Bethel Kasper [Primary Care Provider] - Condition: Good Disposition: 01 HOME, SELF-CARE Decision to Admit: NO Decision Time: 21:11
[2018-10-27] MEDS ORDERED: 0.9 % SODIUM CHLORIDE 1,000 ML IV ONE (19:55)
[2018-10-27] MEDS ORDERED: KETOROLAC TROMETHAMINE 30 MG/1ML VIAL IVP ONE (20:22)
[2018-10-27 21:36] VITALS: BP 91/67
[2018-10-28 09:21] LABS: BASOPHILS % 0.5 (0.0-1.5); EOSINOPHILS % 1.2 % (0.0-6.8); MEAN CORPUSCULAR HEMOGLOBIN 27.6 pg (28.0-34.0); MONOCYTES % 5.7 % (0.0-11.0)
[2018-10-28 09:22] LABS: eGFR (Non-African) > 60
== END 2018-10-27 21:30 | disposition home or self-care (01) ==
LOC: ED 19:18
DX: G43.109 Migraine with aura, not intractable, without status migrainosus (principal)
CPT/HCPCS: 36415; 80053; 81025; 85025; 96365; 99283; 99284; J1885; J7030; 96375; S1016

== ENCOUNTER 2018-11-10 20:35 | Emergency (ER) | payer OTHER ==
--- NOTE | 2018-11-10 20:37 | ED Physician Documentation ---
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 she has not tried any ice or OTC meds. She has pain that is in the first and second finger and palm of the right hand. No loss of feeling. She has FROM with pain.) - ROS CONST: no problems - PAST HX Past History: none Allergies/Adverse Reactions: Allergies Allergy/AdvReac Type Severity Reaction Status Date / Time cephalexin monohydrate Allergy Verified 11/10/18 20:59 [From Keflex] ciprofloxacin [From Cipro] Allergy Verified 11/10/18 20:59 ciprofloxacin HCl Allergy Verified 11/10/18 20:59 [From Cipro] levofloxacin Allergy Verified 11/10/18 20:59 sulfamethoxazole Allergy Verified 11/10/18 20:59 [From Bactrim] sumatriptan [From Imitrex] Allergy Verified 11/10/18 20:59 trimethoprim [From Bactrim] Allergy Verified 11/10/18 20:59 Home Medications: Ambulatory Orders Medication Instructions Recorded Dextroamphetamine/Amphetamine 20 mg PO DAILY 08/08/18 [Adderall Xr 20 mg Capsule] - SOCIAL HX Smoking History: cigarettes Alcohol Use: none Drug Use: none - FAMILY HX Family History: No - VITAL SIGNS Vital Signs: Vital Signs Temp Pulse Resp BP Pulse Ox 91/67 10/27/18 21:31 - REVIEWED ASSESSMENTS Nursing Assessment Reviewed: Yes Vitals Reviewed: Yes ED Results Lab/Radiology - Radiology Radiology Impressions: HISTORY: 42-year-old female with right wrist pain after blunt injury COMPARISON: None available TECHNIQUE: Three views of the right wrist were performed. IMPRESSION: No fracture or acute osseous abnormality of the right wrist. Electronically signed on Nov 10, 2018 9:36:02 PM SUPERINTENDENT COMMUNICATIONS by: Lupillo Jennings HISTORY: 42-year-old female with right hand pain after blunt injury COMPARISON: None available TECHNIQUE: Three views of the right hand were performed. IMPRESSION: 1. Tiny calcification along the volar-medial margin of the base of the fourth finger proximal phalanx may be due to acute or chronic fracture. 2. No other fractures are identified about the right hand. Electronically signed on Nov 10, 2018 9:35:15 PM SUPERINTENDENT COMMUNICATIONS by: Lupillo Jennings General Adult Physical Exam - PHYSICAL EXAM GENERAL APPEARANCE: mild distress EENT: eye inspection normal NECK: normal inspection RESPIRATORY: no resp distress, chest non-tender CVS: reg rate & rhythm, heart sounds normal, equal pulses, no murmur ABDOMEN: soft, no distension BACK: normal inspection SKIN: warm/dry EXTREMITIES: other (right hand first and second finger pain with palpation. No obvious injury Pulses and sensation + ) NEURO: oriented X3 Discharge Clincal Impression: Right hand pain Referrals: Bethel Kasper [Primary Care Provider] - 2 Days Comments: 1. Ice the area 2. OTC meds as directed on bottle for pain 3. Follow up with PCP in 2-4 days 4. Return to the ER for any concerns Condition: Stable Decision to Admit: NO Date of Decison to Admit: 11/10/18 Decision Time: 21:57
[2018-11-10 20:56] VITALS: BP 113/78
[2018-11-10] MEDS: KETOROLAC TROMETHAMINE 60 MG/2 ML VIAL IM ONE (21:21)
--- NOTE | 2018-11-11 05:58 | Diagnostic Imaging Report ---
HEATHER TORRES [facility] [address] [facility] [address] [address] Report Submission Date: Nov 10, 2018 9:35:15 PM VISUAL COMMUNICATIONS INSTRUCTOR Patient Study Name: ANIVAL MYERS Date: Nov 10, 2018 9:04:51 PM VISUAL COMMUNICATIONS INSTRUCTOR Modality Type: DX Gender: F Description: UPPER EXTREMITY : 75 Institution: [facility] Physician: HEATHER TORRES HISTORY: 42-year-old female with right hand pain after blunt injury COMPARISON: None available TECHNIQUE: Three views of the right hand were performed. IMPRESSION: 1. Tiny calcification along the volar-medial margin of the base of the fourth finger proximal phalanx may be due to acute or chronic fracture. 2. No other fractures are identified about the right hand. Electronically signed on Nov 10, 2018 9:35:15 PM VISUAL COMMUNICATIONS INSTRUCTOR by: Lupillo CULP
--- NOTE | 2018-11-11 05:59 | Diagnostic Imaging Report ---
HEATHER TORRES [facility] [id number] [facility] [address] Report Submission Date: Nov 10, 2018 9:36:02 PM ASSISTANT ANALYST Patient Study Name: ANIVAL MYERS Date: Nov 10, 2018 9:03:04 PM ASSISTANT ANALYST Modality Type: DX Gender: F Description: UPPER EXTREMITY : 75 Institution: [facility] Physician: HEATHER TORRES HISTORY: 42-year-old female with right wrist pain after blunt injury COMPARISON: None available TECHNIQUE: Three views of the right wrist were performed. IMPRESSION: No fracture or acute osseous abnormality of the right wrist. Electronically signed on Nov 10, 2018 9:36:02 PM ASSISTANT ANALYST by: Lupillo CULP
== END 2018-11-10 22:00 ==
LOC: ED 20:35
DX: M79.641 Pain in right hand (principal); W23.1XXA Caught, crushed, jammed, or pinched between stationary objects, initial encounter; Y93.9 Activity, unspecified; Y92.149 Unspecified place in prison as the place of occurrence of the external cause; Y99.0 Civilian activity done for income or pay
CPT/HCPCS: 73110; 73130; 99282; 99284

== ENCOUNTER 2019-02-27 19:53 | Emergency (ER) | payer OTHER ==
--- NOTE | 2019-02-27 20:24 | ED Physician Documentation ---
Dyspnea - HISTORIAN Historian: patient - HPI Chief Complaint: Wheezing Onset: hours Initiating Event: environmental allergy Severity: moderate Exacerbated By: exertion Associated Symptoms: none Further Comments: yes (43 year old female patient brought in via EMS. 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 Patient left work to come to ER, was stopping by PD. EMS called during traffic stop due to patient's dyspnea. On their arrival patient was tachypneic, no wheezing, RA Sat's reported above 95% during transport. On arrival to ER, RA Sat 100%, RR 20-24.) - ROS CONST: recent illness (seasonal allergies) EYES/ENT: none GI/: none NEURO/PSYCH: denies: headache MS/SKIN/LYMPH: none - PAST HX Lung Disease: asthma, other (MS, ADHD) Allergies/Adverse Reactions: Allergies Allergy/AdvReac Type Severity Reaction Status Date / Time cephalexin monohydrate Allergy Verified 11/10/18 20:59 [From Keflex] ciprofloxacin [From Cipro] Allergy Verified 11/10/18 20:59 ciprofloxacin HCl Allergy Verified 11/10/18 20:59 [From Cipro] levofloxacin Allergy Verified 11/10/18 20:59 sulfamethoxazole Allergy Verified 11/10/18 20:59 [From Bactrim] sumatriptan [From Imitrex] Allergy Verified 11/10/18 20:59 trimethoprim [From Bactrim] Allergy Verified 11/10/18 20:59 Home Medications: Ambulatory Orders Medication Instructions Recorded Dextroamphetamine/Amphetamine 20 mg PO DAILY 08/08/18 [Adderall Xr 20 mg Capsule] - SOCIAL HX Smoking History: cigarettes - FAMILY HX Family History: denies: none - VITAL SIGNS Vital Signs: Vital Signs Temp Pulse Resp BP Pulse Ox 113/78 11/10/18 22:06 - REVIEWED ASSESSMENTS Nursing Assessment Reviewed: Yes Vitals Reviewed: Yes ED Results Lab/Radiology - Orders Orders: ED Orders Category Date Time Status Urine drug screen [DRUG SCREEN URINE MEDICAL ONLY] Stat Lab 02/27/19 20:06 Ordered Dyspnea Physical Exam - EXAM General Appearance: no acute distress, alert EENT: eye inspection normal, ENT inspection normal, pharynx normal, no signs of dehydration, CHILO, no nystagmus, TM's nml Respiratory: no resp. distress, breath sounds nml, no pain on inspiration, speaks full sentences CVS: reg. 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 Condition: Stable Disposition: 01 HOME, SELF-CARE Decision to Admit: NO Decision Time: 20:29
[2019-02-27 21:14] VITALS: BP 126/74
[2019-02-27 21:42] LABS: APPEARANCE,URINE CLEAR (CLEAR); COLOR,URINE YELLOW (YELLOW); OCCULT BLOOD,URINE NEGATIVE (NEGATIVE); UROBILINOGEN URINE 0.2 Eu (0.2-1.0)
[2019-02-27 21:43] LABS: CANNABINOIDS NEGATIVE ng/mL (< 50); METHYLENEDIOXYMETHAMPHETAMINE NEGATIVE ng/mL (<500)
== END 2019-02-27 21:00 | disposition home or self-care (01) ==
LOC: ED 19:53
DX: R06.4 Hyperventilation (principal); J45.20 Mild intermittent asthma, uncomplicated; Z72.0 Tobacco use
CPT/HCPCS: 80377; 81002; 99282; 99283; G0481